=== PATIENT | female | born 1955 | race Hispanic/Latino ===

== ENCOUNTER 2017-12-08 19:44 | Observation (INO) | payer BC ==
[~2017-12-08] VITALS: Ht 160 cm; Wt 125.1 kg
[~2017-12-08 19:44] MED LIST: BIMA2.5D4 OU; BRIM5DRO OP; CARVEDILOL PO; CLON1PAT13 TD; INSLAN SQ; NIFE10 PO
[2017-12-08 20:43] LABS: HEMATOCRIT 30.9 % (36-48); MEAN CORPUSCULAR HEMOGLOBIN 29.8 pg (27.0-33.0); MEAN CORPUSCULAR HGB CONC 33.7 g/dL (32.0-36.0); MEAN CORPUSCULAR VOLUME 88.7 fL (79-99); MONOCYTES % (AUTO) 7.7 % (3.0-13.0); NEUTROPHILS % (AUTO) 74.3 % (40.0-77.0); PLATELET COUNT (AUTO) 203 K/uL (130-400); RED BLOOD CELL COUNT(AUTO) 3.49 MIL/uL (4.00-5.50); RED CELL DISTRIBUTION WIDTH 15.3 % (11.0-15.5)
[2017-12-08 20:59] LABS: INR 1.02 (0.85-1.15); PARTIAL THROMBOPLASTIN TIME 28.2 SEC (26.3-35.5); PROTHROMBIN TIME 10.7 SEC (9.6-11.6)
[2017-12-08 21:00] LABS: CREATININE 3.5 mg/dL (0.5-1.5); POTASSIUM 5.4 mmol/L (3.5-5.1)
[2017-12-08 21:05] LABS: BILIRUBIN,URINE NEGATIVE (NEGATIVE); COLOR,URINE YELLOW (YELLOW); GLUCOSE, URINE (UA) 250 mg/dL (NEGATIVE); KETONES,URINE NEGATIVE (NEGATIVE); LEUKOCYTE ESTERASE ,URINE NEGATIVE (NEGATIVE); NITRATE,URINE NEGATIVE (NEGATIVE); OCCULT BLOOD,URINE SMALL (NEGATIVE); PROTEIN,URINE >=300 (NEGATIVE); UROBILINOGEN,URINE 0.2 mg/dL (0.2-1.0)
[2017-12-08 21:08] LABS: APPEARANCE,URINE SLIGHTLY CLOUDY (CLEAR)
[2017-12-08 21:13] LABS: ALBUMIN 3.3 g/dL (3.5-5.0); BILIRUBIN,TOTAL 0.4 mg/dL (0.2-1.0); CREATINE KINASE MB 0.9 ng/mL (0.5-3.6); TOTAL PROTEIN, SERUM 6.8 g/dL (6.0-8.3)
[2017-12-08 21:15] LABS: BACTERIA,URINE Few /HPF (None Seen); RBC,URINE 0-1 /HPF (0-1); SQUAMOUS EPITHELIAL CELL,UR None Seen /LPF (0-2); WBC,URINE None Seen /HPF (0-1)
[2017-12-08] MEDS ORDERED: HYDRALAZINE HCL 20 MG/ML VIAL ONE (23:08)
[2017-12-08] MEDS ORDERED: LORAZEPAM 2 MG/ML 1 ML VIAL ONE (23:12)
[2017-12-08] MEDS ORDERED: SODIUM POLYSTYRENE SULFONATE 15 GM/60 ML ML PO SCH (23:15)
[2017-12-08] MEDS ORDERED: LORAZEPAM 2 MG/ML 1 ML VIAL IVP ONE (23:15)
[2017-12-08] MEDS ORDERED: ONDANSETRON HCL 4 MG/2 ML VIAL IV PRN (23:15)
[2017-12-08] MEDS ORDERED: ACETAMINOPHEN 325 MG TAB PO PRN ×2 (23:15)
[2017-12-08] MEDS ORDERED: SODIUM POLYSTYRENE SULFONATE 15 GM/60 ML ML ONE (23:20)
[2017-12-08 23:40] VITALS: BP 176/75
[2017-12-09] VITALS (9 sets, daily range): BP systolic 147–189; BP diastolic 61–82
[2017-12-09] MEDS ORDERED: ERGO500014 PO (00:56)
[2017-12-09] MEDS ORDERED: FURO40TA7 PO (00:56)
[2017-12-09] MEDS ORDERED: INSLAN SQ (00:56)
[2017-12-09] MEDS ORDERED: CLON1PAT13 TD (00:56)
[2017-12-09] MEDS ORDERED: ALLO100T PO (00:56)
[2017-12-09] MEDS ORDERED: ASPI-1197 PO (00:56)
[2017-12-09] MEDS ORDERED: PRAV40TA3 PO (00:56)
[2017-12-09 07:13] LABS: CREATININE 3.5 mg/dL (0.5-1.5); POTASSIUM 4.2 mmol/L (3.5-5.1)
[2017-12-09] MEDS: INSULIN HUMULIN R 100 UNIT/ML 3ML SQ SCH ×4 (07:52→20:28)
[2017-12-09] MEDS: FAMOTIDINE 20MG TAB 20 MG TAB PO SCH ×2 (07:58→20:23)
[2017-12-09] MEDS: HYDRALAZINE HCL 20 MG/ML VIAL IV PRN (07:59)
[2017-12-09] MEDS ORDERED: FUROSEMIDE 40 MG TABLET PO PRN (08:45)
[2017-12-09] MEDS ORDERED: CLONIDINE 0.2 MG/ 24 HR PATCH TD SCH (09:00)
[2017-12-09] MEDS ORDERED: INSULIN GLARGINE 100 UNITS/ML 10 ML VIAL SQ SCH (09:00)
[2017-12-09] MEDS ORDERED: HYDRALAZINE HCL 25 MG TABLET PO SCH (09:00)
[2017-12-09] MEDS ORDERED: ERGOCALCIFEROL (VITAMIN D2) 50,000 UNIT CAPSULE PO SCH (09:00)
[2017-12-09] MEDS: TIMOLOL MALEATE 0.5% 5 ML BOTTLE OU SCH ×2 (09:00→20:24)
[2017-12-09] MEDS ORDERED: CARVEDILOL 12.5 MG TABLET PO SCH (09:00)
[2017-12-09] MEDS ORDERED: CARVEDILOL 25 MG TABLET PO SCH (09:00)
[2017-12-09] MEDS: BRIMONIDINE TARTRATE 0.2% 5 ML BOTTLE OU SCH ×2 (09:00→20:25)
[2017-12-09] MEDS: INSULIN GLARGINE 100 UNITS/ML 10 ML VIAL SQ SCH (09:21)
[2017-12-09] MEDS: ALLOPURINOL 100 MG TABLET PO SCH ×2 (09:32→20:23)
[2017-12-09] MEDS: ASPIRIN 81MG TAB.CHEW PO SCH (09:32)
[2017-12-09] MEDS: CARVEDILOL 25 MG TABLET PO SCH ×2 (09:32→20:23)
[2017-12-09] MEDS: HYDRALAZINE HCL 25 MG TABLET PO SCH ×3 (09:33→20:24)
[2017-12-09] MEDS ORDERED: PHARMACY COMMUNICATION MISC SCH ×2 (13:45→14:00)
[2017-12-09] MEDS ORDERED: ATORVASTATIN CALCIUM 10 MG TABLET PO SCH (21:00)
[2017-12-09] MEDS ORDERED: LATANOPROST 2.5 ML DROPS OU SCH (21:00)
[2017-12-10 03:32] VITALS: BP 173/68
[2017-12-10 06:51] LABS: CREATININE 3.6 mg/dL (0.5-1.5); POTASSIUM 4.6 mmol/L (3.5-5.1)
[2017-12-10 07:00] VITALS: BP 178/68
[2017-12-10] MEDS: INSULIN HUMULIN R 100 UNIT/ML 3ML SQ SCH ×2 (07:30→12:50)
[2017-12-10] MEDS ORDERED: HYDR-4154 PO (08:02)
[2017-12-10] MEDS: HYDRALAZINE HCL 25 MG TABLET PO SCH (08:15)
[2017-12-10] MEDS: ASPIRIN 81MG TAB.CHEW PO SCH (08:16)
[2017-12-10] MEDS: CARVEDILOL 25 MG TABLET PO SCH (08:17)
[2017-12-10] MEDS ORDERED: ERGOCALCIFEROL (VITAMIN D2) 50,000 UNIT CAPSULE PO SCH (09:00)
[2017-12-10] MEDS: BRIMONIDINE TARTRATE 0.2% 5 ML BOTTLE OU SCH (09:00)
[2017-12-10] MEDS: INSULIN GLARGINE 100 UNITS/ML 10 ML VIAL SQ SCH (09:00)
[2017-12-10] MEDS: ALLOPURINOL 100 MG TABLET PO SCH (09:00)
[2017-12-10] MEDS: TIMOLOL MALEATE 0.5% 5 ML BOTTLE OU SCH (09:00)
[2017-12-10 11:00] VITALS: BP 185/80
[2017-12-10] MEDS: HYDRALAZINE HCL 20 MG/ML VIAL IV PRN (11:52)
[2017-12-10 12:18] VITALS: BP 162/62
[2017-12-10 12:48] VITALS: BP 155/60
[2017-12-12] MEDS ORDERED: CLONIDINE 0.2 MG/ 24 HR PATCH TD SCH (09:00)
== END 2017-12-10 12:56 | disposition home or self-care (01) ==
LOC: EDH 19:44 → EDHIP 22:30 → 3CH 22:56
PROVIDERS: ADMIT Family Medicine; ATTEND Family Medicine
DX: I12.9 Hypertensive chronic kidney disease with stage 1 through stage 4 chronic kidney disease, or unspecified chronic kidney disease (principal); N18.9 Chronic kidney disease, unspecified; E11.22 Type 2 diabetes mellitus with diabetic chronic kidney disease; E78.5 Hyperlipidemia, unspecified; F41.9 Anxiety disorder, unspecified; Z85.528 Personal history of other malignant neoplasm of kidney; Z79.899 Other long term (current) drug therapy; Z88.0 Allergy status to penicillin
CPT/HCPCS: 36415 ×3; 71045; 80048 ×2; 80053; 81001; 82550; 82553; 82948 ×7; 84484; 85025; 85610; 85730; 93005; 96372 ×2; 96374; 96376; 99285; A4600; G0378 ×38; J0360 ×3; J1815 ×3; J2060

== ENCOUNTER 2018-03-31 17:19 | Inpatient (IN) | payer BC ==
[~2018-03-31] VITALS: Ht 160 cm; Wt 136.3 kg
[~2018-03-31 17:19] MED LIST changes: +ALLO100T PO; +ASPI-1197 PO; +ERGO500014 PO; +FURO40TA7 PO; +HYDR-4154 PO; -NIFE10 PO; +PRAV40TA3 PO
[2018-03-31 18:16] LABS: BASOPHILS % (AUTO) 0.6 % (0.0-5.0); EOSINOPHILS % (AUTO) 0.1 % (0.0-8.0); LYMPHOCYTES % (AUTO) 6.7 % (21.0-51.0); MEAN CORPUSCULAR HEMOGLOBIN 28.1 pg (27.0-33.0); MEAN CORPUSCULAR HGB CONC 32.1 g/dL (32.0-36.0); MEAN CORPUSCULAR VOLUME 87.6 fL (79-99); MONOCYTES % (AUTO) 5.2 % (3.0-13.0); NEUTROPHILS % (AUTO) 87.4 % (40.0-77.0); PLATELET COUNT (AUTO) 164 K/uL (130-400); RED BLOOD CELL COUNT(AUTO) 2.07 MIL/uL (4.00-5.50); RED CELL DISTRIBUTION WIDTH 16.1 % (11.0-15.5); WHITE BLOOD COUNT (AUTO) 14.8 K/uL (4.8-10.8)
[2018-03-31] MEDS ORDERED: SODIUM CHLORIDE 0.9% 1000ML 1,000 ML IV ONE (18:16)
[2018-03-31 18:20] LABS: HEMATOCRIT 18.1 % (36-48)
[2018-03-31 18:27] LABS: INR 1.11 (0.85-1.15); PROTHROMBIN TIME 11.6 SEC (9.6-11.6)
[2018-03-31] MEDS ORDERED: OCTREOTIDE ACETATE 1,000 MCG in SODIUM CHLORIDE 0.9% 95 ML IV SCH (18:30)
[2018-03-31] MEDS ORDERED: OCTREOTIDE ACETATE 100 MCG/ML AMP IVP ONE (18:30)
[2018-03-31 18:40] LABS: ALBUMIN 2.7 g/dL (3.5-5.0); BILIRUBIN,TOTAL 0.3 mg/dL (0.2-1.0); CREATININE 4.9 mg/dL (0.5-1.5); TOTAL PROTEIN, SERUM 5.6 g/dL (6.0-8.3)
[2018-03-31 18:48] LABS: POTASSIUM 7.2 mmol/L (3.5-5.1)
[2018-03-31] MEDS ORDERED: ONDANSETRON HCL 4 MG/2 ML VIAL ONE (19:30)
[2018-03-31] MEDS ORDERED: GLUCAGON 1MG KIT 1 MG ML IM PRN (20:30)
[2018-03-31] MEDS ORDERED: SODIUM CHLORIDE 0.9% 1000ML 1,000 ML IV SCH (20:30)
[2018-03-31] MEDS ORDERED: DEXTROSE 50%-WATER 50 ML DISP.SYRIN IV PRN (20:30)
[2018-03-31] MEDS ORDERED: ONDANSETRON HCL 4 MG/2 ML VIAL IVP PRN (20:30)
[2018-03-31] MEDS ORDERED: ACETAMINOPHEN 325 MG TAB PO PRN (20:30)
[2018-03-31] MEDS ORDERED: LIDOCAINE HCL 2% VISCOUS 15 ML UDCUP ONE (20:54)
[2018-03-31] MEDS ORDERED: MAGNESIUM HYDROXIDE 30 ML/UDCUP ONE (20:54)
[2018-03-31] MEDS ORDERED: SODIUM CHLORIDE 0.9% 500ML 500 ML IV ONE (21:50)
[2018-03-31 22:10] VITALS: BP 188/66
[2018-03-31 22:15] VITALS: BP 176/56
[2018-03-31 22:30] VITALS: BP 163/67
[2018-03-31] MEDS: HYDRALAZINE HCL 20 MG/ML VIAL IV PRN (22:38)
[2018-03-31 22:45] VITALS: BP 145/60
[2018-03-31] MEDS: INSULIN HUMULIN R 100 UNIT/ML 3ML SQ SCH (22:45)
[2018-03-31 23:00] VITALS: BP 154/56
[2018-03-31] MEDS: SODIUM CHLORIDE 0.9% 1000ML 1,000 ML IV SCH (23:00)
[2018-03-31 23:30] VITALS: BP 148/66
[2018-03-31] MEDS: SODIUM POLYSTYRENE SULFONATE 15 GM/60 ML ML PO SCH (23:48)
[2018-04-01] VITALS (21 sets, daily range): BP systolic 110–185; BP diastolic 33–78
[2018-04-01] MEDS: SODIUM POLYSTYRENE SULFONATE 15 GM/60 ML ML PO SCH (01:10)
[2018-04-01 05:02] LABS: BASOPHILS % (AUTO) 0.9 % (0.0-5.0); LYMPHOCYTES % (AUTO) 13.5 % (21.0-51.0); MEAN CORPUSCULAR HEMOGLOBIN 27.8 pg (27.0-33.0); MEAN CORPUSCULAR HGB CONC 31.4 g/dL (32.0-36.0); MEAN CORPUSCULAR VOLUME 88.5 fL (79-99); MONOCYTES % (AUTO) 9.2 % (3.0-13.0); NEUTROPHILS % (AUTO) 75.4 % (40.0-77.0); PLATELET COUNT (AUTO) 169 K/uL (130-400); RED BLOOD CELL COUNT(AUTO) 2.29 MIL/uL (4.00-5.50); WHITE BLOOD COUNT (AUTO) 12.2 K/uL (4.8-10.8)
[2018-04-01 05:12] LABS: CREATININE 5.1 mg/dL (0.5-1.5); POTASSIUM 5.2 mmol/L (3.5-5.1)
[2018-04-01] MEDS: INSULIN HUMULIN R 100 UNIT/ML 3ML SQ SCH ×4 (05:13→20:50)
[2018-04-01 05:18] LABS: HEMATOCRIT 20.3 % (36-48)
[2018-04-01] MEDS ORDERED: PANTOPRAZOLE 40 MG/VIAL IVP SCH ×2 (09:00→14:00)
[2018-04-01] MEDS ORDERED: SODIUM CHLORIDE 0.9% 250 ML IV ONE (09:57)
[2018-04-01] MEDS: HYDRALAZINE HCL 20 MG/ML VIAL IV PRN (10:00)
[2018-04-01 10:11] LABS: HEMATOCRIT 20.9 % (36-48)
[2018-04-01] MEDS ORDERED: ASPI-555 PO (11:25)
[2018-04-01] MEDS: SODIUM CHLORIDE 0.9% 1000ML 1,000 ML IV SCH (12:01)
[2018-04-01] MEDS ORDERED: PROPOFOL 10 MG/ML 20ML VIAL IV ONE (12:21)
[2018-04-01] MEDS ORDERED: PHARMACY COMMUNICATION MISC SCH (13:45)
[2018-04-01] MEDS: PANTOPRAZOLE SODIUM 80 MG in SODIUM CHLORIDE 0.9% 100 ML IV SCH (14:43)
[2018-04-01 15:08] LABS: HEMATOCRIT 23.1 % (36-48)
[2018-04-01] MEDS ORDERED: DIATR MEGLU/DIATRIZOATE SODIUM 30 ML BOTTLE ONE (15:09)
[2018-04-01] MEDS: HYDRALAZINE HCL 25 MG TABLET PO SCH (20:39)
[2018-04-01 22:30] LABS: HEMATOCRIT 22.8 % (36-48)
[2018-04-02] VITALS (7 sets, daily range): BP systolic 118–182; BP diastolic 54–75
[2018-04-02] MEDS ORDERED: SODIUM CHLORIDE 0.9% 100 ML IV ONE (00:27)
[2018-04-02] MEDS: SODIUM CHLORIDE 0.9% 1000ML 1,000 ML IV SCH (01:40)
[2018-04-02 04:20] LABS: ALBUMIN 2.6 g/dL (3.5-5.0); BILIRUBIN,TOTAL 0.7 mg/dL (0.2-1.0); CREATININE 4.7 mg/dL (0.5-1.5); PHOSPHORUS 4.6 mg/dL (2.5-4.9); POTASSIUM 4.8 mmol/L (3.5-5.1); TOTAL PROTEIN, SERUM 5.2 g/dL (6.0-8.3); URIC ACID 5.3 mg/dL (2.6-7.2)
[2018-04-02 05:42] LABS: MEAN CORPUSCULAR HEMOGLOBIN 30.4 pg (27.0-33.0); MEAN CORPUSCULAR HGB CONC 34.3 g/dL (32.0-36.0); MEAN CORPUSCULAR VOLUME 88.5 fL (79-99); PLATELET COUNT (AUTO) 141 K/uL (130-400); RED CELL DISTRIBUTION WIDTH 16.1 % (11.0-15.5); WHITE BLOOD COUNT (AUTO) 10.6 K/uL (4.8-10.8)
[2018-04-02 05:54] LABS: HEMATOCRIT 20.4 % (36-48)
[2018-04-02] MEDS: INSULIN HUMULIN R 100 UNIT/ML 3ML SQ SCH ×4 (06:29→20:58)
[2018-04-02] MEDS: INSULIN GLARGINE 100 UNITS/ML 10 ML VIAL SQ SCH (08:17)
[2018-04-02] MEDS: TIMOLOL MALEATE 0.5% 5 ML BOTTLE OP SCH ×2 (08:46→20:55)
[2018-04-02] MEDS: BRIMONIDINE TARTRATE 0.2% 5 ML BOTTLE OP SCH ×2 (08:46→20:55)
[2018-04-02] MEDS: CARVEDILOL 25 MG TABLET PO SCH ×2 (08:47→20:58)
[2018-04-02] MEDS: FOLIC ACID/VITAMIN B COMP W-C 1 MG CAPSULE PO SCH (08:47)
[2018-04-02] MEDS: HYDRALAZINE HCL 25 MG TABLET PO SCH ×3 (08:47→20:58)
[2018-04-02] MEDS: ALLOPURINOL 100 MG TABLET PO SCH ×2 (08:48→20:58)
[2018-04-02 10:18] LABS: HEMATOCRIT 20.5 % (36-48)
[2018-04-02] MEDS ORDERED: SODIUM CHLORIDE 0.9% 250 ML IV ONE (12:54)
[2018-04-02] MEDS: PANTOPRAZOLE SODIUM 80 MG in SODIUM CHLORIDE 0.9% 100 ML IV SCH (13:05)
[2018-04-02 14:07] LABS: INR 1.09 (0.85-1.15); PROTHROMBIN TIME 11.4 SEC (9.6-11.6)
[2018-04-02] MEDS: LATANOPROST 2.5 ML DROPS OU SCH (20:55)
[2018-04-02] MEDS: ATORVASTATIN CALCIUM 10 MG TABLET PO SCH (20:58)
[2018-04-02 22:12] LABS: HEMATOCRIT 22.5 % (36-48)
[2018-04-03] VITALS (19 sets, daily range): BP systolic 131–193; BP diastolic 48–75
[2018-04-03 02:53] LABS: COLLECTION PERIOD,URINE 24 HR; CREATININE,SERUM FOR CRCL 4.7 mg/dL (0.6-1.3); TOTAL VOLUME 24HRS,URINE 2000 mL; TPROTEIN TIMED,URINE 145 mg/dL; TPROTEIN U,24HR CALC 2900 mg/24HR (0-165)
[2018-04-03 03:58] LABS: HEMATOCRIT 22.5 % (36-48); MEAN CORPUSCULAR HEMOGLOBIN 29.1 pg (27.0-33.0); MEAN CORPUSCULAR HGB CONC 33.3 g/dL (32.0-36.0); MEAN CORPUSCULAR VOLUME 87.5 fL (79-99); PLATELET COUNT (AUTO) 140 K/uL (130-400); RED BLOOD CELL COUNT(AUTO) 2.57 MIL/uL (4.00-5.50); WHITE BLOOD COUNT (AUTO) 7.5 K/uL (4.8-10.8)
[2018-04-03 04:09] LABS: INR 1.07 (0.85-1.15); PARTIAL THROMBOPLASTIN TIME 25.4 SEC (26.3-35.5); PROTHROMBIN TIME 11.2 SEC (9.6-11.6)
[2018-04-03 04:25] LABS: CREATININE 4.6 mg/dL (0.5-1.5); MAGNESIUM 2.1 mg/dL (1.80-2.40); PHOSPHORUS 5.4 mg/dL (2.5-4.9); POTASSIUM 4.8 mmol/L (3.5-5.1)
[2018-04-03] MEDS: INSULIN HUMULIN R 100 UNIT/ML 3ML SQ SCH ×5 (06:11→20:58)
[2018-04-03] MEDS: INSULIN GLARGINE 100 UNITS/ML 10 ML VIAL SQ SCH ×2 (09:00→11:15)
[2018-04-03] MEDS: HYDRALAZINE HCL 25 MG TABLET PO SCH ×2 (11:17→21:14)
[2018-04-03] MEDS: FOLIC ACID/VITAMIN B COMP W-C 1 MG CAPSULE PO SCH (11:18)
[2018-04-03] MEDS: ALLOPURINOL 100 MG TABLET PO SCH ×2 (11:18→21:15)
[2018-04-03] MEDS: CARVEDILOL 25 MG TABLET PO SCH ×2 (11:18→21:00)
[2018-04-03] MEDS: BRIMONIDINE TARTRATE 0.2% 5 ML BOTTLE OP SCH ×2 (11:19→21:17)
[2018-04-03] MEDS: TIMOLOL MALEATE 0.5% 5 ML BOTTLE OP SCH ×2 (11:19→21:16)
[2018-04-03 11:29] LABS: HEMATOCRIT 23.2 % (36-48)
[2018-04-03] MEDS ORDERED: PEG 3350/NA SULF,BICARB,CL/KCL 4000 ML SOLN PO ONE (17:00)
[2018-04-03] MEDS: ATORVASTATIN CALCIUM 10 MG TABLET PO SCH (21:15)
[2018-04-03] MEDS: LATANOPROST 2.5 ML DROPS OU SCH (21:17)
[2018-04-03] MEDS: NIFEDIPINE ER 30 MG TAB PO SCH (23:45)
[2018-04-04] VITALS (18 sets, daily range): BP systolic 102–175; BP diastolic 40–72
[2018-04-04] MEDS: CARVEDILOL 25 MG TABLET PO SCH ×2 (04:16→20:33)
[2018-04-04 04:29] LABS: HEMATOCRIT 23.5 % (36-48); MEAN CORPUSCULAR HEMOGLOBIN 30.3 pg (27.0-33.0); MEAN CORPUSCULAR HGB CONC 34.3 g/dL (32.0-36.0); MEAN CORPUSCULAR VOLUME 88.3 fL (79-99); PLATELET COUNT (AUTO) 157 K/uL (130-400); RED BLOOD CELL COUNT(AUTO) 2.65 MIL/uL (4.00-5.50); RED CELL DISTRIBUTION WIDTH 15.8 % (11.0-15.5); WHITE BLOOD COUNT (AUTO) 9.1 K/uL (4.8-10.8)
[2018-04-04 04:41] LABS: INR 1.05 (0.85-1.15)
[2018-04-04 04:47] LABS: ALBUMIN 3.1 g/dL (3.5-5.0); BILIRUBIN,TOTAL 0.9 mg/dL (0.2-1.0); CREATININE 4.3 mg/dL (0.5-1.5); PHOSPHORUS 5.1 mg/dL (2.5-4.9); POTASSIUM 4.9 mmol/L (3.5-5.1); TOTAL PROTEIN, SERUM 6.3 g/dL (6.0-8.3)
[2018-04-04 04:50] LABS: BAND NEUTROPHILS % (MANUAL) 3 % (0-2); EOSINOPHILS % (MANUAL) 6 % (1-6); LYMPHOCYTES % (MANUAL) 10 % (22-44); MAN.DIFF COMMENT-IMPRESSION MANUAL DIFFERENTIAL; MONOCYTES % (MANUAL) 5 % (2-9); PLATELET MORPHOLOGY COMMENT ADEQUATE; SEGMENTED NEUTROPHILS % 76 % (40-70)
[2018-04-04] MEDS: INSULIN HUMULIN R 100 UNIT/ML 3ML SQ SCH ×8 (06:27→20:30)
[2018-04-04] MEDS ORDERED: LIDOCAINE HCL-MPF 2% 5ML VIAL ONE (07:03)
[2018-04-04] MEDS ORDERED: SUCCINYLCHOLINE CHLORIDE 20 MG/ML 10 ML VIAL ONE (07:03)
[2018-04-04] MEDS ORDERED: GLYCOPYRROLATE 0.2 MG/ML 5 ML VIAL ONE (07:03)
[2018-04-04] MEDS ORDERED: PHENYLEPHRINE HCL 10 MG/ML 1ML VIAL IV ONE (07:03)
[2018-04-04] MEDS ORDERED: PROPOFOL 1000 MG/100 ML 100 ML IV ONE (07:03)
[2018-04-04] MEDS: NIFEDIPINE ER 30 MG TAB PO SCH (09:00)
[2018-04-04] MEDS: TIMOLOL MALEATE 0.5% 5 ML BOTTLE OP SCH ×2 (09:00→20:34)
[2018-04-04] MEDS: ALLOPURINOL 100 MG TABLET PO SCH ×2 (09:40→20:34)
[2018-04-04] MEDS: HYDRALAZINE HCL 25 MG TABLET PO SCH ×3 (09:40→23:57)
[2018-04-04] MEDS: FOLIC ACID/VITAMIN B COMP W-C 1 MG CAPSULE PO SCH (09:40)
[2018-04-04] MEDS: BRIMONIDINE TARTRATE 0.2% 5 ML BOTTLE OP SCH ×2 (09:44→20:34)
[2018-04-04 10:33] LABS: HEMATOCRIT 23.8 % (36-48)
[2018-04-04] MEDS ORDERED: COMPOUND IV REFRIGERATED 1 EACH IVSOLN MISC PRN (11:00)
[2018-04-04] MEDS: EPOETIN ALFA 20,000 UNIT/ML VIAL SQ SCH ×2 (15:00→21:00)
[2018-04-04] MEDS: LATANOPROST 2.5 ML DROPS OU SCH (20:34)
[2018-04-04] MEDS: ATORVASTATIN CALCIUM 10 MG TABLET PO SCH (20:34)
[2018-04-04] MEDS ORDERED: EPOETIN ALFA 20,000 UNIT/ML VIAL SQ SCH (21:00)
[2018-04-05 03:00] VITALS: BP 136/50
[2018-04-05 04:03] LABS: MEAN CORPUSCULAR HEMOGLOBIN 29.5 pg (27.0-33.0); MEAN CORPUSCULAR HGB CONC 33.3 g/dL (32.0-36.0); MEAN CORPUSCULAR VOLUME 88.6 fL (79-99); PLATELET COUNT (AUTO) 147 K/uL (130-400); RED BLOOD CELL COUNT(AUTO) 2.24 MIL/uL (4.00-5.50); RED CELL DISTRIBUTION WIDTH 15.9 % (11.0-15.5); WHITE BLOOD COUNT (AUTO) 9.4 K/uL (4.8-10.8)
[2018-04-05 04:05] LABS: HEMATOCRIT 19.9 % (36-48)
[2018-04-05 04:12] LABS: CREATININE 4.1 mg/dL (0.5-1.5)
[2018-04-05 04:25] LABS: % IRON SATURATION 13.9 % (22-44)
[2018-04-05] MEDS ORDERED: SODIUM CHLORIDE 0.9% 250 ML IV ONE (04:53)
[2018-04-05] MEDS: INSULIN HUMULIN R 100 UNIT/ML 3ML SQ SCH ×9 (06:31→21:13)
[2018-04-05 07:21] VITALS: BP 180/71
[2018-04-05] MEDS: FOLIC ACID/VITAMIN B COMP W-C 1 MG CAPSULE PO SCH (08:22)
[2018-04-05] MEDS: HYDRALAZINE HCL 25 MG TABLET PO SCH ×4 (08:22→21:00)
[2018-04-05] MEDS: ALLOPURINOL 100 MG TABLET PO SCH ×2 (08:23→20:51)
[2018-04-05] MEDS: CARVEDILOL 25 MG TABLET PO SCH ×2 (08:23→20:52)
[2018-04-05] MEDS: NIFEDIPINE ER 30 MG TAB PO SCH (08:23)
[2018-04-05] MEDS: TIMOLOL MALEATE 0.5% 5 ML BOTTLE OP SCH ×2 (08:24→21:00)
[2018-04-05] MEDS: BRIMONIDINE TARTRATE 0.2% 5 ML BOTTLE OP SCH ×2 (08:24→21:00)
[2018-04-05] MEDS ORDERED: COMPOUND IV MISC 1 EACH IVSOLN MISC PRN (11:00)
[2018-04-05 11:07] VITALS: BP 153/69
[2018-04-05] MEDS: IRON SUCROSE COMPLEX 100 MG in SODIUM CHLORIDE 0.9% 50 ML IV SCH (15:24)
[2018-04-05 16:07] VITALS: BP 159/72
[2018-04-05 19:12] LABS: HEMATOCRIT 25.7 % (36-48)
[2018-04-05] MEDS: ATORVASTATIN CALCIUM 10 MG TABLET PO SCH (20:51)
[2018-04-05] MEDS: LATANOPROST 2.5 ML DROPS OU SCH (21:01)
[2018-04-05 21:05] VITALS: BP 164/71
[2018-04-05 23:00] VITALS: BP 144/67
[2018-04-06 03:10] VITALS: BP 173/74
[2018-04-06 04:02] LABS: BASOPHILS % (AUTO) 0.6 % (0.0-5.0); EOSINOPHILS % (AUTO) 3.2 % (0.0-8.0); MEAN CORPUSCULAR HEMOGLOBIN 31.4 pg (27.0-33.0); MEAN CORPUSCULAR HGB CONC 35.1 g/dL (32.0-36.0); MEAN CORPUSCULAR VOLUME 89.4 fL (79-99); MONOCYTES % (AUTO) 9.5 % (3.0-13.0); NEUTROPHILS % (AUTO) 76.7 % (40.0-77.0); PLATELET COUNT (AUTO) 132 K/uL (130-400); RED BLOOD CELL COUNT(AUTO) 2.79 MIL/uL (4.00-5.50); WHITE BLOOD COUNT (AUTO) 9.2 K/uL (4.8-10.8)
[2018-04-06 04:14] LABS: CREATININE 3.9 mg/dL (0.5-1.5); MAGNESIUM 1.8 mg/dL (1.80-2.40); PHOSPHORUS 4.4 mg/dL (2.5-4.9); POTASSIUM 4.7 mmol/L (3.5-5.1)
[2018-04-06] MEDS: INSULIN HUMULIN R 100 UNIT/ML 3ML SQ SCH ×3 (06:15→16:41)
[2018-04-06 07:12] VITALS: BP 170/66
[2018-04-06] MEDS: FOLIC ACID/VITAMIN B COMP W-C 1 MG CAPSULE PO SCH (07:34)
[2018-04-06] MEDS: HYDRALAZINE HCL 25 MG TABLET PO SCH ×2 (07:34→15:06)
[2018-04-06] MEDS: CARVEDILOL 25 MG TABLET PO SCH (07:35)
[2018-04-06] MEDS: ALLOPURINOL 100 MG TABLET PO SCH (07:35)
[2018-04-06] MEDS: TIMOLOL MALEATE 0.5% 5 ML BOTTLE OP SCH (07:36)
[2018-04-06] MEDS: BRIMONIDINE TARTRATE 0.2% 5 ML BOTTLE OP SCH (07:36)
[2018-04-06] MEDS: IRON SUCROSE COMPLEX 100 MG in SODIUM CHLORIDE 0.9% 50 ML IV SCH (09:00)
[2018-04-06 11:03] VITALS: BP 149/73
[2018-04-06] MEDS ORDERED: HYDR25 PO (14:43)
[2018-04-06 16:24] VITALS: BP 163/72
[2018-04-08] MEDS ORDERED: ERGOCALCIFEROL (VITAMIN D2) 50,000 UNIT CAPSULE PO SCH (09:00)
== END 2018-04-06 17:30 | disposition home or self-care (01) | DRG 377 ==
LOC: EDH 17:19 → EDHIP 18:38 → 2CH 21:21 → 2DH 04-01 17:57
PROVIDERS: ADMIT Family Medicine; ATTEND Family Medicine
PROC: 30233N1 Transfusion of Nonautologous Red Blood Cells into Peripheral Vein, Percutaneous Approach (ICD-10-PCS; 2018-03-31)
PROC: 0DB68ZX Excision of Stomach, Via Natural or Artificial Opening Endoscopic, Diagnostic (ICD-10-PCS; principal; 2018-04-01)
PROC: 0DJ08ZZ Inspection of Upper Intestinal Tract, Via Natural or Artificial Opening Endoscopic (ICD-10-PCS; 2018-04-03)
PROC: 0DBP8ZZ Excision of Rectum, Via Natural or Artificial Opening Endoscopic (ICD-10-PCS; 2018-04-04)
DX: K29.71 Gastritis, unspecified, with bleeding (principal); R57.8 Other shock; J96.20 Acute and chronic respiratory failure, unspecified whether with hypoxia or hypercapnia; I12.0 Hypertensive chronic kidney disease with stage 5 chronic kidney disease or end stage renal disease; N17.9 Acute kidney failure, unspecified; D62 Acute posthemorrhagic anemia; N18.5 Chronic kidney disease, stage 5; Z68.43 Body mass index [BMI] 50.0-59.9, adult; K29.51 Unspecified chronic gastritis with bleeding; K63.5 Polyp of colon; E87.5 Hyperkalemia; E11.22 Type 2 diabetes mellitus with diabetic chronic kidney disease; G47.33 Obstructive sleep apnea (adult) (pediatric); N28.89 Other specified disorders of kidney and ureter; E11.21 Type 2 diabetes mellitus with diabetic nephropathy; E78.5 Hyperlipidemia, unspecified; E11.65 Type 2 diabetes mellitus with hyperglycemia; E66.01 Morbid (severe) obesity due to excess calories; Z88.0 Allergy status to penicillin; Z88.5 Allergy status to narcotic agent; Z88.8 Allergy status to other drugs, medicaments and biological substances; Z90.5 Acquired absence of kidney; Z91.040 Latex allergy status; Z79.4 Long term (current) use of insulin; Z83.3 Family history of diabetes mellitus; Z91.19 Patient's noncompliance with other medical treatment and regimen; Z98.84 Bariatric surgery status; Z98.0 Intestinal bypass and anastomosis status
CPT/HCPCS: 36415; 36430; 74176; 76700; 80048; 80053; 82270; 82575; 82728; 82948; 83540; 83550; 83605; 83690; 83735; 83935; 84100; 84132; 84156; 84300; 84484; 84540; 84550; 85014; 85018; 85025; 85027; 85610; 85730; 86850; 86900; 86901; 86922; 88305; 88312; 93005; 99291; C1894; C9113; J0330; J0360; J0885; J1756; J1815; J2354; J2370; J2405; J2704; J3490; J7030; J7040; J7070; P9016; Q9963

== ENCOUNTER 2018-07-12 20:04 | Emergency (ER) | payer BC ==
[~2018-07-12 20:04] MED LIST changes: -ASPI-1197 PO; -HYDR-4154 PO; +HYDR25 PO
[2018-07-12 21:09] LABS: BASOPHILS % (AUTO) 0.8 % (0.0-5.0); EOSINOPHILS % (AUTO) 2.2 % (0.0-8.0); HEMATOCRIT 29.4 % (36-48); LYMPHOCYTES % (AUTO) 6.8 % (21.0-51.0); MEAN CORPUSCULAR HEMOGLOBIN 28.7 pg (27.0-33.0); MEAN CORPUSCULAR HGB CONC 31.1 g/dL (32.0-36.0); MEAN CORPUSCULAR VOLUME 92.4 fL (79-99); MONOCYTES % (AUTO) 6.6 % (3.0-13.0); NEUTROPHILS % (AUTO) 83.6 % (40.0-77.0); PLATELET COUNT (AUTO) 145 K/uL (130-400); RED BLOOD CELL COUNT(AUTO) 3.18 MIL/uL (4.00-5.50); RED CELL DISTRIBUTION WIDTH 20.3 % (11.0-15.5); WHITE BLOOD COUNT (AUTO) 7.9 K/uL (4.8-10.8)
[2018-07-12 21:23] LABS: CREATININE 4.1 mg/dL (0.5-1.5); POTASSIUM 5.2 mmol/L (3.5-5.1)
[2018-07-12 21:24] LABS: INR 1.12 (0.85-1.15); PARTIAL THROMBOPLASTIN TIME 31.6 SEC (26.3-35.5); PROTHROMBIN TIME 11.7 SEC (9.6-11.6)
[2018-07-12 21:45] LABS: ALBUMIN 3.3 g/dL (3.5-5.0); BILIRUBIN,TOTAL 0.8 mg/dL (0.2-1.0); TOTAL PROTEIN, SERUM 6.7 g/dL (6.0-8.3)
== END 2018-07-12 23:37 | disposition home or self-care (01) ==
LOC: EDH 20:04
DX: I16.0 Hypertensive urgency (principal); I12.9 Hypertensive chronic kidney disease with stage 1 through stage 4 chronic kidney disease, or unspecified chronic kidney disease; E11.22 Type 2 diabetes mellitus with diabetic chronic kidney disease; N18.9 Chronic kidney disease, unspecified; E78.5 Hyperlipidemia, unspecified; R60.9 Edema, unspecified; Z88.0 Allergy status to penicillin; Z91.040 Latex allergy status; Z88.6 Allergy status to analgesic agent; Z79.899 Other long term (current) drug therapy
CPT/HCPCS: 36415; 71045; 80053; 82550; 83874; 83880; 84484; 85025; 85610; 85730; 93005; 94761

== ENCOUNTER → 2022-03-07 | Outpatient (CLI) | payer BC, MEDICARE | END | disposition home or self-care (01) | LOC: RAH 13:13 | PROVIDERS: ATTEND Student in an Organized Health Care Education/Training Program | DX: Z01.818 Encounter for other preprocedural examination (principal); N18.6 End stage renal disease | CPT/HCPCS: 93970 ==

== ENCOUNTER 2022-03-10 09:41 | Emergency (ER) | payer BC, MEDICARE ==
[~2022-03-10] VITALS: Ht 160 cm; Wt 110.8 kg
[2022-03-10 10:24] LABS: BASOPHILS % (AUTO) 0.6 % (0.0-5.0); EOSINOPHILS % (AUTO) 4.6 % (0.0-8.0); HEMATOCRIT 37.2 % (36-48); LYMPHOCYTES % (AUTO) 11.3 % (21.0-51.0); MEAN CORPUSCULAR HEMOGLOBIN 31.9 pg (27.0-33.0); MEAN CORPUSCULAR HGB CONC 33.3 g/dL (32.0-36.0); MEAN CORPUSCULAR VOLUME 95.6 fL (79-99); MONOCYTES % (AUTO) 7.7 % (3.0-13.0); NEUTROPHILS % (AUTO) 75.4 % (40.0-77.0); PLATELET COUNT (AUTO) 148 K/uL (130-400); RED BLOOD CELL COUNT(AUTO) 3.89 MIL/uL (4.00-5.50); RED CELL DISTRIBUTION WIDTH 13.3 % (11.0-15.5); WHITE BLOOD COUNT (AUTO) 7.1 K/uL (4.8-10.8)
[2022-03-10] MEDS ORDERED: CLONIDINE HCL 0.3 MG TABLET PO ONE (10:30)
[2022-03-10 10:40] LABS: B-TYPE NATRIURETIC PEPTIDE 294 pg/mL (0-100)
[2022-03-10 10:43] LABS: CREATININE 4.5 mg/dL (0.5-1.5); POTASSIUM 3.8 mmol/L (3.5-5.1)
[2022-03-10 10:47] LABS: ALBUMIN 3.8 g/dL (3.5-5.0); BILIRUBIN,TOTAL 0.4 mg/dL (0.2-1.0); TOTAL PROTEIN, SERUM 7.8 g/dL (6.0-8.3)
[2022-03-10] MEDS ORDERED: HYDRALAZINE 20MG/ML VIAL IV ONE (12:00)
[2022-03-10] MEDS ORDERED: NIFEDIPINE 10 MG CAP PO ONE (12:30)
[2022-03-10 13:04] VITALS: BP 157/35
== END 2022-03-10 13:00 | disposition home or self-care (01) ==
LOC: EDH 09:41
DX: I12.0 Hypertensive chronic kidney disease with stage 5 chronic kidney disease or end stage renal disease (principal); E11.22 Type 2 diabetes mellitus with diabetic chronic kidney disease; N18.6 End stage renal disease; E78.00 Pure hypercholesterolemia, unspecified; J44.9 Chronic obstructive pulmonary disease, unspecified; Z88.0 Allergy status to penicillin; Z88.5 Allergy status to narcotic agent; Z98.84 Bariatric surgery status; Z90.5 Acquired absence of kidney
CPT/HCPCS: 36415; 71045; 80053; 83880; 84484; 85025; 93005; 96374; 99284; J0360

== ENCOUNTER 2022-04-05 12:59 | Emergency (ER) | payer BC, MEDICARE ==
[~2022-04-05] VITALS: Ht 160 cm; Wt 109.8 kg
[2022-04-05 13:42] LABS: BASOPHILS % (AUTO) 0.8 % (0.0-5.0); EOSINOPHILS % (AUTO) 5.4 % (0.0-8.0); HEMATOCRIT 33.1 % (36-48); LYMPHOCYTES % (AUTO) 14.5 % (21.0-51.0); MEAN CORPUSCULAR HEMOGLOBIN 32.8 pg (27.0-33.0); MEAN CORPUSCULAR HGB CONC 34.1 g/dL (32.0-36.0); MEAN CORPUSCULAR VOLUME 96.2 fL (79-99); NEUTROPHILS % (AUTO) 70.5 % (40.0-77.0); PLATELET COUNT (AUTO) 127 K/uL (130-400); RED BLOOD CELL COUNT(AUTO) 3.44 MIL/uL (4.00-5.50); RED CELL DISTRIBUTION WIDTH 12.9 % (11.0-15.5); WHITE BLOOD COUNT (AUTO) 6.6 K/uL (4.8-10.8)
[2022-04-05 14:05] LABS: ALBUMIN 3.6 g/dL (3.5-5.0); BILIRUBIN,TOTAL 0.4 mg/dL (0.2-1.0); CREATININE 5.1 mg/dL (0.5-1.5); POTASSIUM 3.8 mmol/L (3.5-5.1); TOTAL PROTEIN, SERUM 7.4 g/dL (6.0-8.3)
[2022-04-05] MEDS: FAMOTIDINE 20MG VIAL IV ONE (14:09)
[2022-04-05 14:20] LABS: B-TYPE NATRIURETIC PEPTIDE 384 pg/mL (0-100)
[2022-04-05] MEDS: HYDRALAZINE 20MG/ML VIAL IV ONE (14:58)
[2022-04-05] MEDS: LIDOCAINE HCL 2% VISCOUS 15 ML UDCUP PO ONE (15:54)
[2022-04-05] MEDS: MAG/ALUM/SIMETH 30 ML UDCUP PO ONE (15:54)
[2022-04-05 17:07] VITALS: BP 168/48
== END 2022-04-05 17:14 | disposition home or self-care (01) ==
LOC: EDH 12:59
DX: K21.9 Gastro-esophageal reflux disease without esophagitis (principal); E10.9 Type 1 diabetes mellitus without complications; E78.00 Pure hypercholesterolemia, unspecified; I10 Essential (primary) hypertension; E05.90 Thyrotoxicosis, unspecified without thyrotoxic crisis or storm; M10.9 Gout, unspecified; Z88.0 Allergy status to penicillin; Z88.5 Allergy status to narcotic agent; Z88.8 Allergy status to other drugs, medicaments and biological substances; Z91.040 Latex allergy status; Z79.899 Other long term (current) drug therapy; Z98.890 Other specified postprocedural states; Z79.4 Long term (current) use of insulin
CPT/HCPCS: 36415; 71045; 80053; 83690; 83880; 84484 ×2; 85025; 93005; 96374; 96375; 99284; J0360; J3490

== ENCOUNTER 2022-04-07 23:56 | Emergency (ER) | payer MEDICARE, BC ==
[~2022-04-07] VITALS: Ht 160 cm; Wt 106.6 kg
[2022-04-08 01:29] LABS: BASOPHILS % (AUTO) 0.5 % (0.0-5.0); EOSINOPHILS % (AUTO) 4.7 % (0.0-8.0); HEMATOCRIT 32.5 % (36-48); LYMPHOCYTES % (AUTO) 13.7 % (21.0-51.0); MEAN CORPUSCULAR HEMOGLOBIN 32.8 pg (27.0-33.0); MEAN CORPUSCULAR HGB CONC 33.5 g/dL (32.0-36.0); MEAN CORPUSCULAR VOLUME 97.9 fL (79-99); MONOCYTES % (AUTO) 7.9 % (3.0-13.0); NEUTROPHILS % (AUTO) 72.8 % (40.0-77.0); PLATELET COUNT (AUTO) 131 K/uL (130-400); RED BLOOD CELL COUNT(AUTO) 3.32 MIL/uL (4.00-5.50); RED CELL DISTRIBUTION WIDTH 12.9 % (11.0-15.5); WHITE BLOOD COUNT (AUTO) 7.7 K/uL (4.8-10.8)
[2022-04-08] MEDS ORDERED: NITROGLYCERIN 1GM OINT 1 INCH/1GM TD ONE (01:30)
[2022-04-08 01:38] LABS: CREATININE 5.9 mg/dL (0.5-1.5); POTASSIUM 4.4 mmol/L (3.5-5.1)
[2022-04-08 01:50] LABS: ALBUMIN 3.6 g/dL (3.5-5.0); BILIRUBIN,TOTAL 0.5 mg/dL (0.2-1.0); MAGNESIUM 2.2 mg/dL (1.80-2.40); TOTAL PROTEIN, SERUM 7.4 g/dL (6.0-8.3)
[2022-04-08 01:51] LABS: APPEARANCE,URINE CLEAR (CLEAR); BILIRUBIN,URINE NEGATIVE (NEGATIVE); COLOR,URINE YELLOW (YELLOW); GLUCOSE, URINE (UA) 250 mg/dL (NEGATIVE); KETONES,URINE NEGATIVE (NEGATIVE); LEUKOCYTE ESTERASE ,URINE NEGATIVE (NEGATIVE); NITRATE,URINE NEGATIVE (NEGATIVE); OCCULT BLOOD,URINE NEGATIVE (NEGATIVE); PROTEIN,URINE >=300 mg/dL (NEGATIVE); UROBILINOGEN,URINE 0.2 mg/dL (0.2-1.0)
[2022-04-08 01:59] LABS: B-TYPE NATRIURETIC PEPTIDE 277 pg/mL (0-100)
[2022-04-08 02:03] LABS: BACTERIA,URINE Rare /HPF (None Seen); MUCUS,URINE Rare LPF (None Seen); RBC,URINE None Seen /HPF (0-1); SQUAMOUS EPITHELIAL CELL,UR Few /HPF (0-2); WBC,URINE 0-1 /HPF (0-1)
[2022-04-08 02:04] LABS: YEAST,URINE BUDDING None Seen /HPF (None Seen)
[2022-04-08 04:50] VITALS: BP 122/37
== END 2022-04-08 04:57 | disposition home or self-care (01) ==
LOC: EDH 23:56
DX: I12.0 Hypertensive chronic kidney disease with stage 5 chronic kidney disease or end stage renal disease (principal); E11.22 Type 2 diabetes mellitus with diabetic chronic kidney disease; N18.6 End stage renal disease; Z99.2 Dependence on renal dialysis; E03.9 Hypothyroidism, unspecified; M10.9 Gout, unspecified; Z88.0 Allergy status to penicillin; Z88.5 Allergy status to narcotic agent; Z88.8 Allergy status to other drugs, medicaments and biological substances; Z91.040 Latex allergy status; Z79.899 Other long term (current) drug therapy; Z79.4 Long term (current) use of insulin; Z98.890 Other specified postprocedural states
CPT/HCPCS: 36415; 71045; 80053; 81001; 82550; 83735; 83880; 84484; 85025; 93005

== ENCOUNTER → 2023-04-10 | Outpatient (CLI) | payer MEDICARE ==
[~2023-04-10] VITALS: Ht 160 cm; Wt 110.8 kg
[~2023-04-10] MED LIST changes: +AMLO-257 PO; +AMLO2.5T4 PO; +CARV25TA PO; +DOXA2TAB2 PO; +FERR210T PO; +GABA-529 PO; +INSU3INS3 SQ; +KETO.5OS OD; +LORA10TA7 PO; +LOSA100T59 PO; +PANT40TA54 PO; +PRAV10TA39 PO; +SEMA1PEN3 SQ; +THYR30TA2 PO
[2023-04-10 11:22] LABS: INR 0.97 (0.85-1.15); PROTHROMBIN TIME 11.3 SEC (9.6-11.6)
[2023-04-10 11:26] LABS: CREATININE 7.4 mg/dL (0.5-1.5); POTASSIUM 5.4 mmol/L (3.5-5.1)
[2023-04-10 11:39] LABS: BASOPHILS % (AUTO) 0.7 % (0.0-5.0); EOSINOPHILS % (AUTO) 4.3 % (0.0-8.0); HEMATOCRIT 33.1 % (36-48); LYMPHOCYTES % (AUTO) 11.7 % (21.0-51.0); MEAN CORPUSCULAR HEMOGLOBIN 32.1 pg (27.0-33.0); MEAN CORPUSCULAR HGB CONC 32.6 g/dL (32.0-36.0); MEAN CORPUSCULAR VOLUME 98.5 fL (79-99); MONOCYTES % (AUTO) 6.2 % (3.0-13.0); NEUTROPHILS % (AUTO) 76.8 % (40.0-77.0); PLATELET COUNT (AUTO) 135 K/uL (130-400); RED BLOOD CELL COUNT(AUTO) 3.36 MIL/uL (4.00-5.50); WHITE BLOOD COUNT (AUTO) 7.4 K/uL (4.8-10.8)
[2023-04-10 11:48] VITALS: BP_SYST 170; BP_SYST 213; BP_SYST 215; BP_DIAS 76; BP_DIAS 84; BP_DIAS 85
== END | disposition home or self-care (01) ==
LOC: EDSTATUS 09:00 → DAH 10:06
PROVIDERS: ATTEND Student in an Organized Health Care Education/Training Program
DX: Z01.818 Encounter for other preprocedural examination (principal); N18.6 End stage renal disease; Z53.8 Procedure and treatment not carried out for other reasons; Z79.01 Long term (current) use of anticoagulants; Z79.899 Other long term (current) drug therapy
CPT/HCPCS: 86900; 87426; 80048; 85025; 85610; 85730; 86850; 86901; 82948; 36415; 93005; A6260

== ENCOUNTER 2023-05-21 07:30 | Day surgery (SDC) | payer MEDICARE ==
[2023-05-16 11:26] LABS: HEMATOCRIT 36.1 % (36-48); MEAN CORPUSCULAR HEMOGLOBIN 32.7 pg (27.0-33.0); MEAN CORPUSCULAR HGB CONC 33.5 g/dL (32.0-36.0); MEAN CORPUSCULAR VOLUME 97.6 fL (79-99); PLATELET COUNT (AUTO) 133 K/uL (130-400); RED CELL DISTRIBUTION WIDTH 13.5 % (11.0-15.5); WHITE BLOOD COUNT (AUTO) 6.3 K/uL (4.8-10.8)
[2023-05-16 11:42] LABS: INR 0.93 (0.85-1.15); PROTHROMBIN TIME 10.7 SEC (9.6-11.6)
[2023-05-16 11:44] LABS: PARTIAL THROMBOPLASTIN TIME 30.5 SEC (26.3-35.5)
[2023-05-16 11:45] VITALS: BP 194/73; PULSE 76; RESP 18
[2023-05-16 12:02] LABS: ALBUMIN 3.8 g/dL (3.5-5.0); BILIRUBIN,TOTAL 0.4 mg/dL (0.2-1.0); CREATININE 4.8 mg/dL (0.5-1.5); POTASSIUM 3.8 mmol/L (3.5-5.1); TOTAL PROTEIN, SERUM 8.6 g/dL (6.0-8.3)
[2023-05-16 12:08] LABS: BASOPHILS % (MANUAL) 1 % (0-2); EOSINOPHILS % (MANUAL) 7 % (1-6); LYMPHOCYTES % (MANUAL) 16 % (22-44); MAN.DIFF COMMENT-IMPRESSION MANUAL DIFFERENTIAL; MONOCYTES % (MANUAL) 8 % (2-9); PLATELET MORPHOLOGY COMMENT ADEQUATE; SEGMENTED NEUTROPHILS % 68 % (40-70); TOTAL CELLS COUNTED 100
[~2023-05-21] VITALS: Ht 160 cm; Wt 109.1 kg
[2023-05-21] VITALS (20 sets, daily range): BP systolic 113–222; BP diastolic 44–97; PULSE 67–80; RESP 12–20
[~2023-05-21 07:30] MED LIST changes: +AURYXIA PO; -BRIM5DRO OP; +BRIM5DRO OU; -CARVEDILOL PO; -CLON1PAT13 TD; +CLON1PAT14 TD; -FERR210T PO; -FURO40TA7 PO; +HYDR-4154 PO; -HYDR25 PO; -INSLAN SQ; -KETO.5OS OD; +KETO.5OS OU; -PRAV40TA3 PO
[2023-05-21] MEDS ORDERED: CEFAZOLIN SODIUM 1 GM VIAL ONE (08:54)
[2023-05-21] MEDS ORDERED: 0.9% NACL 500ML IV.SOLN 500 ML IV ONE (08:55)
[2023-05-21 09:11] LABS: POTASSIUM 5.2 mmol/L (3.5-5.1)
[2023-05-21 09:46] LABS: CREATININE 10.5 mg/dL (0.5-1.5)
[2023-05-21] MEDS ORDERED: TIRZ5PEN SQ (09:54)
[2023-05-21] MEDS ORDERED: CLINDAMYCIN IVPB 600MG/50ML 50 ML IV ONE (10:56)
[2023-05-21] MEDS ORDERED: AMLODIPINE PO (12:00)
[2023-05-21] MEDS ORDERED: DEXTROSE 50%-WATER 50 ML DISP.SYRIN IV ONE (13:12)
[2023-05-21] MEDS ORDERED: HYDRALAZINE 20MG/ML VIAL ONE ×2 (13:29→16:13)
[2023-05-21] MEDS ORDERED: MIDAZOLAM HCL 1 MG/ML 2ML VIAL ONE (13:57)
[2023-05-21] MEDS ORDERED: PROPOFOL 10 MG/ML 20ML VIAL IV ONE (13:57)
[2023-05-21] MEDS ORDERED: FENTANYL CITRATE PF 50 MCG/1 ML 2ML VIAL ONE (13:59)
[2023-05-21] MEDS ORDERED: KETAMINE 50MG/ML SYRINGE 50 MG/ML DISP.SYRIN ONE (14:15)
[2023-05-21] MEDS ORDERED: EPHEDRINE SULFATE 50 MG/ML AMPULE ONE (14:50)
== END 2023-05-21 17:42 | disposition home or self-care (01) ==
LOC: DAH 07:30
PROVIDERS: ATTEND Student in an Organized Health Care Education/Training Program
DX: E11.22 Type 2 diabetes mellitus with diabetic chronic kidney disease (principal); Z20.822 Contact with and (suspected) exposure to COVID-19; I12.0 Hypertensive chronic kidney disease with stage 5 chronic kidney disease or end stage renal disease; N18.6 End stage renal disease; E78.00 Pure hypercholesterolemia, unspecified; E66.9 Obesity, unspecified; Z99.2 Dependence on renal dialysis; Z79.899 Other long term (current) drug therapy; Z79.01 Long term (current) use of anticoagulants; Z98.84 Bariatric surgery status; Z98.890 Other specified postprocedural states; Z82.49 Family history of ischemic heart disease and other diseases of the circulatory system; Z88.8 Allergy status to other drugs, medicaments and biological substances; Z88.0 Allergy status to penicillin; Z91.040 Latex allergy status; Z68.41 Body mass index [BMI] 40.0-44.9, adult
CPT/HCPCS: 80053; 85025; 85610; 85730; 86850 ×2; 86900 ×2; 86901 ×2; 36415 ×2; 93005; 36821; 80048; 82948 ×5; A6260; A4663 ×2; J7040; J7070; J0360 ×2; J3490 ×3; J2704; J1644; A4649 ×4; C1713 ×2; A4930; A4215; A4223; A4222; A4221; A4600; J0690; J2250; J3010; G0168

== ENCOUNTER → 2024-04-10 | Outpatient (CLI) | payer MEDICARE ==
[~2024-04-10] MED LIST changes: -AMLO-257 PO; -AMLO2.5T4 PO; +AMLODIPINE PO; -HYDR-4154 PO; +HYDR50TA37 PO; -SEMA1PEN3 SQ; +TIRZ5PEN SQ
== END | disposition home or self-care (01) ==
LOC: RAH 09:04
PROVIDERS: ATTEND Family Medicine
DX: M25.511 Pain in right shoulder (principal); Z86.718 Personal history of other venous thrombosis and embolism
CPT/HCPCS: 93971